=== PATIENT | male | born 1990 | race Caucasian/White ===

== ENCOUNTER → 2016-07-05 | Outpatient (CLI) | payer OTHER ==
[2016-07-05 12:57] LABS: RED BLOOD COUNT 5.21 M/UL (4.20-5.50); WHITE BLOOD COUNT 8.4 K/UL (4.5-11.0)
[2016-07-05 13:18] LABS: BUN/CREATININE RATIO 17 (0-10)
== END ==
LOC: LAB 12:21
PROVIDERS: Internal Medicine Nephrology
DX: Z00.00 Encounter for general adult medical examination without abnormal findings (principal); E66.9 Obesity, unspecified; R53.83 Other fatigue
CPT/HCPCS: 36415; 80053; 80061; 85007; 85027

== ENCOUNTER 2020-07-04 10:08 | Emergency (ER) | payer SELFPAY | END 2020-07-04 10:56 | disposition home or self-care (01) | LOC: ER1 10:08 | DX: H53.10 Unspecified subjective visual disturbances (principal) | CPT/HCPCS: 99283 ==

== ENCOUNTER 2021-08-27 14:11 | Emergency (ER) | payer OTHER ==
[2021-08-27 15:01] LABS: HEMOGLOBIN 13.8 gm/dl (14.0-17.5); RED BLOOD COUNT 4.77 M/UL (4.20-5.50); WHITE BLOOD COUNT 11.5 K/UL (4.5-11.0)
[2021-08-27 15:22] LABS: BUN/CREATININE RATIO 16 (0-10)
== END 2021-08-27 17:22 | disposition home or self-care (01) ==
LOC: ER1 14:11
PROVIDERS: Physician Assistant Medical
DX: R11.0 Nausea (principal); Z88.0 Allergy status to penicillin
CPT/HCPCS: 71045; 80053; 81001; 82550; 82553; 84484; 85025; 93005; 99284